=== PATIENT | female | born 1970 ===

== ENCOUNTER 2023-09-22 08:35 | Outpatient (AMB) | payer MEDICARE, MEDICAID, SELFPAY ==
--- NOTE | 2023-09-22 08:47 | A.OFFVIS_ITS ---
Vital Signs 09/22/23 08:49 Height 5 ft 2 in Weight 180 lb BMI 32.9 BP 114/80 Blood Pressure Location Rt brachial Position Sitting Pulse 78 Pulse Source Pulse Oximeter Pulse Oximetry (%) 98 Oxygen Delivery Method Room Air Intake Visit Reasons: ENP-Chronic Migraines-Conf Intake Note: Patient presents for chronic migraines. Patient has migraines she had an MRI that showed a fluid filled sac in my head. patient informed not to take fioricet due to a possible cerebral infarction . Border Patrol Agent Required: Yes Border Patrol Agent Name: sera jackson Allergies codeine Adverse Reaction (Severe, Verified 09/22/23 08:52) hyperactive Medication List - Last Reconciled 09/22/23 by Shelby Muñiz, ASAF atenolol 25 mg PO BID bupropion HCl XL 300 mg PO DAILY uprqzmwfcv-rhnffdvemlueq-ccgn 50-300-40 mg caps PO cetirizine 10 mg PO DAILY clonazepam 2 mg PO BID PRN fluticasone propionate 50 mcg/actuation 1 spray intranasal DAILY hydrochlorothiazide 12.5 mg PO DAILY tramadol 50 mg PO BID PRN HPI Comments Details: Right handed 53-yr-old female presents for new pt evaluation of headache disorder. Pt reports she has had migraine and headache since age 24 w/o known precipitating cause. Pt reports she recently had a brain MRI due to worsening headache frequency and severity in the last 2-3 years. She states the brain MRI was abnormal- but does not understand exactly what was found, but states that she was told not to take fioricet ro topiramate due to the results. Review of [facility] portal shows 2021 brain MRI - Multiple small T2 bright foci are present within the supratentorial white matter and Partially empty sella turcica. PMH and ROS are notable for:? Vision- blurry vision at times Musculoskeletal disorders or injury: neck pain, fibromyalgia, bone pains Cramps: leg cramps- during the day or night History of concussion/head injury: Denies Mood d/o: Anxiety, Depression, ? bipolar Respiratory d/o: Asthma CV disease: HTN GI d/o: Constipation: RECREATIONAL DIRECTOR: Menses is irregular: lizy-menopausal Pertinent denials include: History of concussion/head injury, Sleep d/o, Clotting or hematology d/o, Endocrine or metabolic d/o, History of seizure, syncope, or drop attacks, Family history of migraine or other headache disorder Lifestyle considerations: Sleep routine: Usual bedtime: 2-3am, or may not sleep and wake-up time: 8-9-10am Sleep difficulties: Endorses: Snoring, Fatigue, Restless sleep, Leg Cramps, Bruxism- does not have a mouth guard. Had recent in-lab sleep study at basement Caffeine use: 1 large cups per day- in am Substance use: denies Exercise:?cannot do much Employment:?not working Headache questionnaire:? Typical headache characteristics: Prodrome symptoms: Unsure Aura and Headache: Starts with osmophobia, seeing spots, f/b a bothersome pain in the neck which moves up through the head. Associated symptoms: photophobia, phonophobia, osmophobia, allodynia, nausea, vomiting- at times, spinning dizziness, not right in space dizziness, fatigue, cognitive difficulties, arms feel weak- not sure if from fibromyalgia, red eye, watery eye- at times, nasal congestion, right eye swelling, activity intolerance. Postdrome: can have stabbing pains. Triggers: weather changes- in the summer, the heat, bending over worsens the headache Time of day: No specific time of day Duration and Frequency: More days than not- feels like all the time How does headache impact your life? Cannot work or do her daily activities. Current acute medication use/interventions: Fioricet- helps. Tramadol- for fibromylagia. Current preventative medication use: None Non-pharmacological interventions: rest PFSH Surgical History (Updated 09/22/23 @ 08:55 by ROBBIE Bergeron) History of left salpingo-oophorectomy H/O section Family History (Updated 09/22/23 @ 08:56 by ROBBIE Bergeron) Father Cancer, colon Mother Cirrhosis Diabetes Social History (Updated 09/22/23 @ 08:57 by ROBBIE Bergeron) Alcohol intake: never Patient Tobacco Use Status: Never used Tobacco Physical Exam Vital Signs: Last Vital Signs Pulse 78 09/22/23 08:49 BP 114/80 09/22/23 08:49 Pulse Ox 98 09/22/23 08:49 Oxygen Delivery Method Room Air 09/22/23 08:49 BMI result Body Mass Index 32.9 Const Orientation/consciousness: patient oriented x3 HEENT Other: No palpable scalp tenderness. Head: Yes normocephalic Resp Effort & Inspection: normal respiratory effort and able to speak in complete sentences Neuro General: patient oriented x3 Cranial nerves: Yes CN's II-XII intact bilaterally Cognition (Neuro): normal cognition Gait exam (Neuro): Normal gait present Motor exam (neuro): 5/5 motor strength present throughout Deep tendon reflexes (DTR's): Right triceps reflex intensity grade: 2+, Left tri ceps reflex intensity grade: 2+, Rt Biceps (C5, C6): 2+, Left biceps reflex intensity grade: 2+, Right brachioradialis reflex intensity grade: 2+, Left brachioradialis reflex intensity grade: 2+, Right patellar reflex intensity grade: 2+ and Left patellar reflex intensity grade: 2+ Coordination: oqyaej-ir-tdck test normal and tandem gait normal Pupils: Normal pupillary reactivity/response: bilateral Psych Appearance: grossly normal Mental Status: mental status grossly normal Speech and movement: Normal speech and movement present Affect: normal affect Attitude: cooperative Thought process: Normal thought process present Results Reviewed Results Reviewed: 10/05/21, ?MRI Brain W/O Contrast MRI Brain W/O Contrast INDICATION: Reason: Other:; Headache, chronic, no new features; Clinical Question(s): Other:; Order Comment: Please see Reference Text for complete list of contraindications Other: TECHNIQUE: MRI of the brain was performed without contrast utilizing sagittal T1, axial T2, axial FLAIR, axial SWAN, and axial DWI sequences. COMPARISON: No prior studies are available for comparison at the time of int erpretation. FINDINGS: BRAIN and EXTRA-AXIAL SPACES: There is a partially empty sella turcica. The cervicomedullary junction is normal. The ventricles are normal in size. No extra-axial fluid collection. The flow voids through the rincon of [place] are maintained, and there is no diffusion abnormality or abnormal susceptibility artifact to indicate hemorrhage. There are multiple small T2 bright foci predominantly located within the subcortical white matter. The corpus callosum is normal in signal and configuration on the sagittal T1- weighted images. EXTRACRANIAL SOFT TISSUES: The visualized extracranial soft tissues and orbital structures are unremarkable. Paranasal sinuses and mastoids are unremarkable. BONES: Marrow signal is preserved. IMPRESSION: 1. No intracranial mass or extra-axial fluid collection. 2. Multiple small T2 bright foci are present within the supratentorial white matter. These may represent chronic microangiopathic/small vessel ischemic change. Small T2 bright white matter lesions have also been reported in patients with migraine headache. 3. Partially empty sella turcica. Assessment & Plan Assessment & Plan (1) Empty sella: Code(s): E23.6 - Other disorders of pituitary gland Category: Medical (2) Worsening headaches: Code(s): R51.9 - Headache, unspecified Category: Medical (3) Chronic migraine without aura: Code(s): G43.709 - Chronic migraine without aura, not intractable, without status migrainosus Category: Medical (4) White matter abnormality on MRI of brain: Code(s): R90.82 - White matter disease, unspecified Category: Medical Plan Pt advised to undergo: Brain MRI w/wo to assess staus of white matter lesion burden and empty sella turcica. For overall headache management: * Optimize good self-care, including but not limited to maintaining a healthy diet, adequate fluid intake, adequate sleep, and engaging in regular physical activity. * Track headaches, especially after any treatment regimen changes. Migraine [employer] is one of many headache tracking apps. * Information shared on non-pharmacological interventions which may help to alleviate headache attack burden. For light sensitivity: Patient may benefit from trying blue light filtering glasses, green glasses, green light therapy. Avoiding wearing sunglasses inside. For sound sensitivity: Patent may benefit from trying noise cancellation ear plugs. Neuromodulation devices, which can be used alone or with pharmacological treatment. For acute headache treatment: Discussed importance of taking acute medications at the first sign of headache, however stressed importance of avoiding acute medication overuse (especially with combined headache medications). May continue Fioricet prn for now- use sparingly. Potential adverse effects of Fioricet, including but not limited to fatigue, medication overuse headaches. Previous acute migraine medication trials: Sumatriptan- did not tolerate- made her head feel weird and caused BP changes. Acute migraine medication contraindications: None at this time- however cannot use gepants w/ using Fioricet. For headache prevention medication: Preventative medications should be taken routinely as prescribed for best effect, it may take several weeks for full effect to take effect. Resume Topiramate 25-50mg qhs. Start Emgality 240mg sc x's 1 f/b 120mg sc q month, Potential adverse effects of Ajovy and Emgality, including but not limited to injection site reactions. Previous migraine prevention medication trials: Topiramate- 100mg- helped some, but stopped after the MRI showed empty sella, Propranolol- used for palpiations- did not help headaches. Metoprolol for the palpitations- did not fully help headaches. Migraine prevention medication contraindications: Additional anti-depressant tx- as pt has bipolar dx and is not on an opposing mood stabilizer. Pt seen in collaboration w/ Dr Melisa Rosario. Pt to follow-up in 3-6 months or sooner prn. Orders: Orders MR head/brain wo/w con 09/22/23 E23.6 - Other disorders of pituitary gland, R51.9 - Headache, unspecified, R90.82 - White matter disease, unspecified Medications: New galcanezumab-gnlm (Emgality Pen) Loading dose: 120 mg subcu injection x2 in alternate sites (total 240 mg). To be followed by maintenance dose of 120 mg subcu q.month. 240 mg (2 mL) subcut ONCE 2 mL 0RF 30 days G43.709 - Chronic migraine without aura, not intractable, without status migrainosus topiramate 25 - 50 mg (1 - 2 x 25 mg) PO BEDTIME 60 tabs 3RF 30 days G43.709 - Chronic migraine without aura, not intractable, without status migrainosus Coding Level of Care Code New Pt Level 4 (10933) Diagnoses Empty sella E23.6 Worsening headaches R51.9 Chronic migraine without aura G43.709 White matter abnormality on MRI of brain R90.82
[2023-09-22 08:49] VITALS: BP 114/80; PULSE 78; O2SAT 98; BMI 32.9
== END 2023-09-22 10:24 | disposition home or self-care (01) ==
PROVIDERS: PCP Internal Medicine; Visit Provider Nurse Practitioner Family
DX: E23.6 Other disorders of pituitary gland (principal); R51.9 Headache, unspecified; G43.709 Chronic migraine without aura, not intractable, without status migrainosus; R90.82 White matter disease, unspecified
CPT/HCPCS: 99204

== ENCOUNTER → 2023-09-22 08:35 | Outpatient (BNVA) | payer MEDICARE, MEDICAID, SELFPAY | PROVIDERS: PCP Internal Medicine; Visit Provider Nurse Practitioner Family | DX: G43.709 Chronic migraine without aura, not intractable, without status migrainosus (principal); R90.82 White matter disease, unspecified; E23.6 Other disorders of pituitary gland; R51.9 Headache, unspecified | CPT/HCPCS: 99202 ==

== ENCOUNTER → 2023-10-26 11:01 | Outpatient (BNVA) | payer MEDICARE, MEDICAID, SELFPAY | PROVIDERS: PCP Internal Medicine; Visit Provider Nurse Practitioner Family ==

== ENCOUNTER 2023-12-01 15:12 | Outpatient (REF) | payer MEDICARE, MEDICAID, SELFPAY ==
--- NOTE | ~2023-12-01 | MR_ITS ---
EXAMINATION: MR BRAIN WITHOUT CONTRAST CLINICAL INFORMATION: Headache COMPARISON: None TECHNIQUE: Multiplanar multisequence MR imaging of the brain was obtained without intravenous contrast. FINDINGS: There is no acute infarct on diffusion-weighted imaging. There is no intracranial hemorrhage on iron-sensitive imaging. No extra-axial collection or mass effect/herniation. There are multiple scattered foci of T2/FLAIR hyperintense signal in the supratentorial and predominantly bifrontal white matter. No hydrocephalus. The ventricles are normal in morphology and size. The major flow voids at the skull base are preserved. Mildly expanded and partially empty sella. The cerebellar tonsils are normally positioned. The craniocervical junction is normal. Marrow signal is within normal limits. The visualized soft tissues are without significant abnormality. No signal abnormality within the paranasal sinuses or within the mastoid air cells. MR/MR head/brain wo con IMPRESSION: 1. Multiple scattered foci of T2/FLAIR hyperintense signal in the supratentorial and predominantly bifrontal white matter are nonspecific but can be seen in the setting of migraine and/or chronic microvascular ischemia. 2. Mildly expanded and partially empty sella. As an isolated finding, this is nonspecific but can be seen in the setting of chronic elevated intracranial pressure including idiopathic intracranial hypertension. Correlate with clinical symptomatology. Electronically signed by: Edmundo Morgan MD 12/20/2023 06:33 PM EDT
== END 2023-12-01 15:13 | disposition home or self-care (01) ==
LOC: HO.MRI 15:12
PROVIDERS: PCP Internal Medicine; Visit Provider Nurse Practitioner Family
DX: R51.9 Headache, unspecified (principal); E23.6 Other disorders of pituitary gland; R90.82 White matter disease, unspecified
CPT/HCPCS: 70551

== ENCOUNTER 2023-12-21 08:57 | Outpatient (AMB) | payer MEDICARE, SELFPAY, MEDICAID ==
--- NOTE | 2023-12-21 09:01 | A.OFFVIS_ITS ---
Vital Signs 12/21/23 09:02 Height 5 ft 2 in Weight 177 lb BMI 32.4 Intake Visit Reasons: Follow up Intake Note: Patient presents for follow up Paraprofessional Education Assistant Required: Yes Paraprofessional Education Assistant Services: Paraprofessional Education Assistant Offered & Declined Paraprofessional Education Assistant Name: john handy Allergies codeine Adverse Reaction (Severe, Verified 12/21/23 09:04) hyperactive Medication List - Last Reconciled 12/21/23 by ASAF Valencia bupropion HCl XL 300 mg PO DAILY fazyinxxir-dzzbrnbuapvyj-tugq 50-300-40 mg 1 cap PO Q4-6H PRN 30 days cetirizine 10 mg PO DAILY clonazepam 2 mg PO BID PRN fluticasone propionate 50 mcg/actuation 1 spray intranasal DAILY galcanezumab-gnlm (Emgality Pen) 240 mg (2 mL) subcut ONCE 30 days hydrochlorothiazide 12.5 mg PO DAILY propranolol 40 mg PO BID topiramate 25 - 50 mg (1 - 2 x 25 mg) PO BEDTIME 30 days tramadol 50 mg PO BID PRN HPI Comments Details: 53-yr-old female presents for f/u visit. Pt is accompanied by her her , John who assists w/ English translation. Pt had a recent [facility] ER eval d/t tachycardia. Per pt, this was thought to be triggered by recently stopping Atenolol as it was thought to be causing peripheral swelling. Work-up was unremarkable. They suggested she start Propranolol 40mg bid. stop the HCTZ. D/c paperwork also indictaed to stop topiramate, but this was not addressed specifically in the provider notes. In a week, she is having 2-3 migraine days. Headaches strat after getting up in the am. Prior to the hospital, she felt the Emgality was helping. But she has had an increase in headaches since the last visit. She has been trying not to take the Fioricet. Thus, she is not taking anything at onset. Her last eye exam was 1 yr ago. She denies any interval vision changes. Rarely has ear ringing- typically during the day when up. Baseline headache characteristics: Prodrome symptoms: Unsure Aura and Headache: Starts with osmophobia, seeing spots, f/b a bothersome pain in the neck which moves up through the head. Associated symptoms: photophobia, phonophobia, osmophobia, allodynia, nausea, vomiting- at times, spinning dizziness, not right in space dizziness, fatigue, cognitive difficulties, arms feel weak- not sure if from fibromyalgia, red eye, watery eye- at times, nasal congestion, right eye swelling, activity intolerance. Postdrome: can have stabbing pains. 12/01/23, MR/MR head/brain wo con IMPRESSION: 1. Multiple scattered foci of T2/FLAIR hyperintense signal in the supratentorial and predominantly bifrontal white matter are nonspecific but can be seen in the setting of migraine and/or chronic microvascular ischemia. 2. Mildly expanded and partially empty sella. As an isolated finding, this is nonspecific but can be seen in the setting of chronic elevated intracranial pressure including idiopathic intracranial hypertension. Correlate with clinical symptomatology.) [facility] Medical History (Updated 12/21/23 @ 09:48 by ASAF Valencia) Anxiety and depression Asthma Surgical History History of left salpingo-oophorectomy H/O section Family History Father Cancer, colon Mother Cirrhosis Diabetes Social History Alcohol intake: never Patient Tobacco Use Status: Never used Tobacco Physical Exam Vital Signs: BMI result Body Mass Index 32.4 Const General: cooperative and no acute distress Orientation/consciousness: patient oriented x3 Resp Effort & Inspection: normal respiratory effort and able to speak in complete sentences Neuro General: patient oriented x3 Cranial nerves: Yes CN's II-XII intact bilaterally Cognition (Neuro): normal cognition Psych Appearance: grossly normal Mental Status: mental status grossly normal Speech and movement: Normal speech and movement present Affect: normal affect Attitude: cooperative Assessment & Plan Assessment & Plan (1) Migraine without aura: Code(s): G43.009 - Migraine without aura, not intractable, without status migrainosus Category: Medical (2) White matter abnormality on MRI of brain: Code(s): R90.82 - White matter disease, unspecified Category: Medical (3) Empty sella: Code(s): E23.6 - Other disorders of pituitary gland Category: Medical Plan Reviewed: Brain MRI w/wo- stabke white matter lesion burden and empty sella turcica. No current clinical indications of IIH. Will monitor. Pt advsied to have f/u eye exam. ? For overall headache management: Continue to optimize good self-care, including but not limited to maintaining a healthy diet, adequate fluid intake, adequate sleep, and engaging in regular physical activity. Track headaches, especially after any treatment regimen changes. ? For acute headache treatment: Stop Fioricet prn for now- use sparingly. Trial Rimegepant ODT (Nurtec ODT) 75mg, 1 tab every other day. Max of 1 tabs (75mg) per 24 hours. May adjunct with OTC Tylenol 650mg q 4 hours, Ibuprofen 600mg q 6 hours, or Naproxen 440mg q 12 hrs prn. Do not take w/ Butalbital (Fioricet or Fiorinal). Potential adverse effects, include but are not limited to fatigue, nausea, dry mouth, constipation. Previous acute migraine medication trials: Sumatriptan- did not tolerate- made her head feel weird and caused BP changes. Acute migraine medication contraindications: All triptans- d/t poorly controlled HTN. ? For headache prevention medication: Resume Topiramate 50mg qhs. Continue Emgality 120mg sc q month, as this has been effective. Continue Propranolol 40mg bid- for HTN/tachycardia. Previous migraine prevention medication trials: Topiramate- 100mg- helped some, but stopped after the MRI showed empty sella, Propranolol- was previously used for palpiations- did not help headaches. Metoprolol for the palpitations- did not fully help headaches. Migraine prevention medication contraindications: Additional anti-depressant tx- as pt has bipolar dx and is not on an opposing mood stabilizer. ? Pt to follow-up in 6 months or sooner prn. Medications: New rimegepant (Nurtec ODT) 75 mg PO ONCE 30 days PRN 16 tabs 3RF migraine headache MDD 1 tab Coding Level of Care Code Est Pt Level 4 (97345) Diagnoses Migraine without aura G43.009 White matter abnormality on MRI of brain R90.82 Empty sella E23.6
[2023-12-21 09:02] VITALS: BMI 32.4
== END 2023-12-21 09:46 | disposition home or self-care (01) ==
PROVIDERS: PCP Internal Medicine; Visit Provider Nurse Practitioner Family
DX: G43.009 Migraine without aura, not intractable, without status migrainosus (principal); R90.82 White matter disease, unspecified; E23.6 Other disorders of pituitary gland
CPT/HCPCS: 99214

== ENCOUNTER → 2023-12-21 08:57 | Outpatient (BNVA) | payer MEDICARE, MEDICAID, SELFPAY | PROVIDERS: PCP Internal Medicine; Visit Provider Nurse Practitioner Family | DX: G43.009 Migraine without aura, not intractable, without status migrainosus (principal); R90.82 White matter disease, unspecified; E23.6 Other disorders of pituitary gland | CPT/HCPCS: 99212 ==

== ENCOUNTER 2024-03-22 13:05 | Outpatient (AMB) | payer MEDICARE, MEDICAID, SELFPAY ==
--- NOTE | 2024-03-22 13:08 | MHC.OFFVIS ---
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 Allergies codeine Adverse Reaction (Severe, Verified 03/22/24 13:13) hyperactive Medication List - Last Reconciled 03/22/24 by ASAF Valencia bupropion HCl XL 300 mg PO DAILY vwbzqjuhmc-kcfxlfjwghaxy-jbdr 50-300-40 mg 1 cap PO Q4-6H PRN 30 days cetirizine 10 mg PO DAILY clonazepam 2 mg PO BID PRN fluticasone propionate 50 mcg/actuation 1 spray intranasal DAILY galcanezumab-gnlm (Emgality Pen) 240 mg (2 mL) subcut ONCE 30 days hydrochlorothiazide 12.5 mg PO DAILY propranolol 40 mg PO BID rimegepant (Nurtec ODT) 75 mg PO ONCE PRN 30 days MDD 1 tab topiramate 50 mg (2 x 25 mg) PO BEDTIME 30 days tramadol 50 mg PO BID PRN Do you need a note to return to daycare/school/sports/work: No HPI Comments Details: 53-yr-old female presents for f/u visit for migraine. Pt reports she is having increased migraine frequency and photophobia. Sometimes the headache is stabbing right sided. The headache is worse after standing up and when she lays flat down. Rarely has ear ringing- typically during the day when up. She stopped the Fioricet. She feels the injection is not working as well. Nurtec and help some, it is unclear if she is taking it at the very 1st sign of her migraine. She has not had updated eye exam yet. Patient also notes that she is having increased daytime sleepiness, increased snoring, a mild weight gain, and a history of reported mild sleep apnea however was never started on PAP therapy. Baseline headache characteristics: Prodrome symptoms: Unsure Aura and Headache: Starts with osmophobia, seeing spots, f/b a bothersome pain in the neck which moves up through the head. Associated symptoms: photophobia, phonophobia, osmophobia, allodynia, nausea, vomiting- at times, spinning dizziness, not right in space dizziness, fatigue, cognitive difficulties, arms feel weak- not sure if from fibromyalgia, red eye, watery eye- at times, nasal congestion, right eye swelling, activity intolerance. Postdrome: can have stabbing pains. 12/01/23, MR/MR head/brain wo con IMPRESSION: 1. Multiple scattered foci of T2/FLAIR hyperintense signal in the supratentorial and predominantly bifrontal white matter are nonspecific but can be seen in the setting of migraine and/or chronic microvascular ischemia. 2. Mildly expanded and partially empty sella. As an isolated finding, this is nonspecific but can be seen in the setting of chronic elevated intracranial pressure including idiopathic intracranial hypertension. Correlate with clinical symptomatology.) [facility] Medical History Anxiety and depression Asthma Surgical History History of left salpingo-oophorectomy H/O section Family History Father Cancer, colon Mother Cirrhosis Diabetes Social History Alcohol intake: never Patient Tobacco Use Status: Never used Tobacco Physical Exam Vital Signs: Last Vital Signs Pulse 75 03/22/24 13:09 BP 120/70 03/22/24 13:09 Pulse Ox 100 03/22/24 13:09 Oxygen Delivery Method Room Air 03/22/24 13:09 BMI result Body Mass Index 32.9 Const General: cooperative and no acute distress Orientation/consciousness: patient oriented x3 Resp Effort & Inspection: normal respiratory effort and able to speak in complete sentences Neuro Other: Photophobic General: patient oriented x3 Cranial nerves: Yes CN's II-XII intact bilaterally Cognition (Neuro): normal cognition Psych Appearance: grossly normal Mental Status: mental status grossly normal Speech and movement: Normal speech and movement present Affect: normal affect Attitude: cooperative Assessment & Plan Assessment & Plan (1) Migraine without aura: Code(s): G43.009 - Migraine without aura, not intractable, without status migrainosus Category: Medical (2) White matter abnormality on MRI of brain: Code(s): R90.82 - White matter disease, unspecified Category: Medical (3) Empty sella: Code(s): E23.6 - Other disorders of pituitary gland Category: Medical (4) Obstructive sleep apnea: Code(s): G47.33 - Obstructive sleep apnea (adult) (pediatric) Category: Medical (5) Hypersomnia: Code(s): G47.10 - Hypersomnia, unspecified Category: Medical Plan Again reviewed Brain MRI w/wo report and images with patient- stable white matter lesion burden and empty sella turcica. No current clinical indications of IIH. However, patient is advised to have updated eye exam is scheduled next week, to confirm no evidence of papilledema or visual field deficits. Patient also advised to undergo in-lab sleep study to assess status of sleep apnea. Future considerations: LP for opening pressure. ? For overall headache management: Continue to optimize good self-care, including but not limited to maintaining a healthy diet, adequate fluid intake, adequate sleep, and engaging in regular physical activity. Track headaches, especially after any treatment regimen changes. Information shared with patient on nonpharmacological interventions of migraine, including strategies to reduce photophobia such as blue light blocking glasses, green light therapy. ? For acute headache treatment: Continue Rimegepant ODT (Nurtec ODT) 75mg, 1 tab every other day. Max of 1 tabs (75mg) per 24 hours. Advised to take at the very 1st sign of migraine attack, such as at onset of osmophobia. May adjunct Nurtec with OTC Tylenol 650mg q 4 hours, Ibuprofen 600mg q 6 hours, or Naproxen 440mg q 12 hrs prn. Do not take w/ Butalbital (Fioricet or Fiorinal). Potential adverse effects, include but are not limited to fatigue, nausea, dry mouth, constipation. Previous acute migraine medication trials: Sumatriptan- did not tolerate- made her head feel weird and caused BP changes. Fioricet stopped, ineffective. Acute migraine medication contraindications: All triptans- d/t poorly controlled HTN. ? For headache prevention medication: Increase Topiramate from 50mg qhs to 50 mg b.i.d. for 1 week and then increase to 50 mg in a.m. and 100 mg q.h.s. Continue Emgality 120mg sc q month, as this has been previously effective. Continue Propranolol 40mg bid- for HTN/tachycardia. Previous migraine prevention medication trials: Topiramate- 100mg- helped some, but stopped after the MRI showed empty sella, Propranolol- was previously used for palpations- did not help headaches. Metoprolol for the palpitations- did not fully help headaches. Migraine prevention medication contraindications: Additional anti-depressant tx- as pt has bipolar dx and is not on an opposing mood stabilizer. Future considerations: With Psychiatry weaning off of bupropion as sometimes this may exacerbate headache, trialing Qulipta. ? Pt to follow-up in 6 months or sooner prn. Orders: Orders RT PSG in-lab sleep study Today G47.10 - Hypersomnia, unspecified, G47.33 - Obstructive sleep apnea (adult) (pediatric) Medications: New topiramate 50mg in am and 100mg qhs orally 2 times a day; 30 days 90 tabs 3RF Discontinued topiramate Discontinued Reason: Doctor's Order 50 mg (2 x 25 mg) PO BEDTIME 30 days 60 tabs 6RF G43.709 - Chronic migraine without aura, not intractable, without status migrainosus Coding Level of Care Code Est Pt Level 4 (63568) Diagnoses Migraine without aura G43.009 White matter abnormality on MRI of brain R90.82 Empty sella E23.6 Obstructive sleep apnea G47.33 Hypersomnia G47.10 [place] Sleepiness Scale Questions Sitting and reading: moderate chance of dozing Watching TV: moderate chance of dozing Sitting inactive in a theater, movie etc.: moderate chance of dozing As a passenger in a car for an hour without break: moderate chance of dozing Lying down in the afternoon when circumstances permit: moderate chance of dozing Sitting and talking to someone: would never doze Sitting quietly after lunch without alcohol: moderate chance of dozing In a car, while stopped for a few minutes in the traffic: would never doze ESS < 10: normal, ESS > 12: pathologic: 12
[2024-03-22 13:09] VITALS: BP 120/70; PULSE 75; O2SAT 100; BMI 32.9
== END 2024-03-22 14:16 | disposition home or self-care (01) ==
PROVIDERS: PCP Internal Medicine; Visit Provider Nurse Practitioner Family
DX: G43.009 Migraine without aura, not intractable, without status migrainosus (principal); R90.82 White matter disease, unspecified; E23.6 Other disorders of pituitary gland; G47.33 Obstructive sleep apnea (adult) (pediatric); G47.10 Hypersomnia, unspecified
CPT/HCPCS: 99214

== ENCOUNTER → 2024-03-22 13:05 | Outpatient (BNVA) | payer MEDICARE, MEDICAID, SELFPAY | PROVIDERS: PCP Internal Medicine; Visit Provider Nurse Practitioner Family | DX: G43.709 Chronic migraine without aura, not intractable, without status migrainosus (principal); G47.33 Obstructive sleep apnea (adult) (pediatric); G47.10 Hypersomnia, unspecified; R90.82 White matter disease, unspecified; E23.6 Other disorders of pituitary gland | CPT/HCPCS: 99212 ==

== ENCOUNTER 2024-08-23 11:27 | Outpatient (AMB) | payer MEDICARE, MEDICAID, SELFPAY ==
[2024-08-23 11:31] VITALS: BP 98/70; PULSE 77; O2SAT 99; BMI 33.1
--- NOTE | 2024-08-23 11:31 | MHC.OFFVIS ---
Vital Signs 08/23/24 11:31 Height 5 ft 2 in Weight 181 lb BMI 33.1 BP 98/70 Blood Pressure Location Lt brachial Position Sitting Pulse 77 Pulse Source Pulse Oximeter Pulse Oximetry (%) 99 Oxygen Delivery Method Room Air Intake Visit Reasons: Follow up Intake Note: Patient presents follow up for migraines. Material Control Manager Required: Yes Material Control Manager Name: Shree Accompanied by: Self / Same As Patient Allergies codeine Adverse Reaction (Severe, Verified 08/23/24 11:35) hyperactive Medication List - Last Reconciled 08/23/24 by ASAF Valencia bupropion HCl XL 300 mg PO DAILY dudurmhghx-qmvblbmptmait-ogxk 50-300-40 mg 1 cap PO Q4-6H PRN 30 days cetirizine 10 mg PO DAILY clonazepam 2 mg PO BID PRN fluticasone propionate 50 mcg/actuation 1 spray intranasal DAILY galcanezumab-gnlm (Emgality Pen) 240 mg (2 mL) subcut ONCE 30 days hydrochlorothiazide 12.5 mg PO DAILY propranolol 40 mg PO BID propranolol 40 mg PO BID rimegepant (Nurtec ODT) 75 mg PO ONCE PRN 30 days MDD 1 tab topiramate 50mg in am and 100mg qhs orally 2 times a day; 30 days tramadol 50 mg PO BID PRN HPI Comments Details: 54-yr-old female presents for f/u visit for migraine. Patient reports the following interval changes: She had [facility] admission in January 2024 for right abdominal pain with US showing enlarged right ovary. 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 Patient is unsure of the next steps PCP has recently referred her to [facility] pain management for chronic low back pain with intermittent sciatica. 08/03/2024, XR lumbar spine shows multilevel degenerative changes, with significant arthritic changes at L4-5, as well as anterior subluxation of L4 on L5 measuring 8 mm. She is not having many headache days during the 1st 3 weeks following her Emgality injection, however she has her typical migraine every day during the last week of are Emgality injection cycle. She is wondering if her previous brain MRI findings of empty sella would prohibit her from flying. Also notes significant anxiety due to flying, usually uses prn Xanax with good effect. Patient denies history of flight induced headaches. She states she has had 2 interval eye exams-however we do not have these no notes at this time. Pt reports when she increased the dose of topiramate to 100mg qhs, it caused nocturnal bilateral facial muscle spasms- which does not occur with the b.i.d. dosing. So she switched the Topirmate magdaleno to 50mg bid, and this resolved. Her HCTZ was decreased as her BP was too low- in the 80/40s. BP today is 98/70. States that the Emgality works well for 3 weeks, but the effect wears off during the last week of injection cycle. States Nurtec is helpful Patient did not have sleep study, however continues to report daytime sleepiness, increased snoring, a mild weight gain. She has a history of reported mild sleep apnea however was never started on PAP therapy. To would prefer to do a home sleep study instead of an in-lab study. Baseline headache characteristics: Prodrome symptoms: Unsure Aura and Headache: Starts with osmophobia, seeing spots, f/b a bothersome pain in the neck which moves up through the head. Associated symptoms: photophobia, phonophobia, osmophobia, allodynia, nausea, vomiting- at times, spinning dizziness, not right in space dizziness, fatigue, cognitive difficulties, arms feel weak- not sure if from fibromyalgia, red eye, watery eye- at times, nasal congestion, right eye swelling, activity intolerance. Postdrome: can have stabbing pains. 12/01/23, MR/MR head/brain wo con IMPRESSION: 1. Multiple scattered foci of T2/FLAIR hyperintense signal in the supratentorial and predominantly bifrontal white matter are nonspecific but can be seen in the setting of migraine and/or chronic microvascular ischemia. 2. Mildly expanded and partially empty sella. As an isolated finding, this is nonspecific but can be seen in the setting of chronic elevated intracranial pressure including idiopathic intracranial hypertension. Correlate with clinical symptomatology.) [facility] Medical History Anxiety and depression Asthma Surgical History History of left salpingo-oophorectomy H/O section Family History Father Cancer, colon Mother Cirrhosis Diabetes Social History Alcohol intake: never Patient Tobacco Use Status: Never used Tobacco Physical Exam Vital Signs: Last Vital Signs Pulse 77 08/23/24 11:31 BP 98/70 08/23/24 11:31 Pulse Ox 99 08/23/24 11:31 Oxygen Delivery Method Room Air 08/23/24 11:31 BMI result Body Mass Index 33.1 Const General: cooperative and no acute distress Orientation/consciousness: patient oriented x3 Resp Effort & Inspection: normal respiratory effort and able to speak in complete sentences Neuro Other: Photophobic Bilateral posterior cervical tightness and tenderness General: patient oriented x3 Cranial nerves: Yes CN's II-XII intact bilaterally Cognition (Neuro): normal cognition Psych Appearance: grossly normal Mental Status: mental status grossly normal Speech and movement: Normal speech and movement present Affect: normal affect Attitude: cooperative Assessment & Plan Assessment & Plan (1) Migraine without aura: Code(s): G43.009 - Migraine without aura, not intractable, without status migrainosus Category: Medical Qualifiers: Status migrainosus presence: without status migrainosus Intractability: not intractable Qualified Code(s): G43.009 - Migraine without aura, not intractable, without status migrainosus (2) Obstructive sleep apnea: Code(s): G47.33 - Obstructive sleep apnea (adult) (pediatric) Category: Medical (3) Hypersomnia: Code(s): G47.10 - Hypersomnia, unspecified Category: Medical (4) White matter abnormality on MRI of brain: Code(s): R90.82 - White matter disease, unspecified Category: Medical (5) Empty sella: Code(s): E23.6 - Other disorders of pituitary gland Category: Medical Plan Brain MRI w/wo report and images with patient- stable white matter lesion burden and empty sella turcica. No current clinical indications of IIH. We will request ophthalmology notes Patient again advised sleep study, patient request home sleep study if possible. Future considerations: LP for opening pressure, trial of Acetazolamide (possibly during air travel). Zepbound therapy- if sleep study shows moderate-severe NORRIS or eye exam has revealed visual deficits c/w intracranial hypertension. ? For overall headache management: Continue to optimize good self-care, including but not limited to maintaining a healthy diet, adequate fluid intake, adequate sleep, and engaging in regular physical activity. Track headaches, especially after any treatment regimen changes. Information shared with patient on nonpharmacological interventions of migraine, including strategies to reduce photophobia such as blue light blocking glasses, green light therapy. ? For acute headache treatment: Continue Rimegepant ODT (Nurtec ODT) 75mg, 1 tab every other day. Max of 1 tabs (75mg) per 24 hours. Advised to take at the very 1st sign of migraine attack, such as at onset of osmophobia. May adjunct Nurtec with OTC Tylenol 650mg q 4 hours, Ibuprofen 600mg q 6 hours, or Naproxen 440mg q 12 hrs prn. Do not take w/ Butalbital (Fioricet or Fiorinal). Previous acute migraine medication trials: Sumatriptan- did not tolerate- made her head feel weird and caused BP changes. Fioricet stopped, ineffective. Acute migraine medication contraindications: All triptans- d/t poorly controlled HTN. ? For headache prevention medication: Start magnesium 400 mg daily at bedtime- may help was cervical muscle tightness as well Continue Topiramate 50 mg twice a day. Note that 100 mg q.h.s. dose caused nocturnal bilateral facial spasms. Continue Emgality 120mg sc q month, as this has been previously effective. During last week of Emgality injection cycle, take Nurtec 75 mg every other day to optimize preventative therapy. Continue Propranolol 40mg bid- for HTN/tachycardia. Previous migraine prevention medication trials: Topiramate- 100mg- helped some, but stopped after the MRI showed empty sella, Propranolol- was previously used for palpations- did not help headaches. Metoprolol for the palpitations- did not fully help headaches. Migraine prevention medication contraindications: Additional anti-depressant tx- as pt has bipolar dx and is not on an opposing mood stabilizer. Future considerations: With Psychiatry weaning off of bupropion as sometimes this may exacerbate headache, trialing Qulipta. ? Pt to follow-up in 6 months or sooner prn. Orders: Orders RT home sleep study Today G47.10 - Hypersomnia, unspecified, G47.33 - Obstructive sleep apnea (adult) (pediatric) Medications: New magnesium oxide may hold for loose stools 400 mg PO BEDTIME 30 days 30 tabs 6RF Changed From rimegepant (Nurtec ODT) 75 mg PO ONCE 30 days PRN 16 tabs 3RF migraine headache MDD 1 tab To rimegepant (Nurtec ODT) PA approved through 04/11/2099 75 mg PO ONCE 30 days PRN 16 tabs 11RF migraine headache MDD 1 tab Discontinued zvwrngyqxl-icnthcylsdmnb-psdv 50-300-40 mg Discontinued Reason: Doctor's Order 1 cap PO Q4-6H 30 days PRN 20 caps 1RF pain Coding Level of Care Code Est Pt Level 4 (07767) Diagnoses Migraine without aura and without status migrainosus, not intractable G43.009 Status migrainosus presence: without status migrainosus Intractability: not intractable Obstructive sleep apnea G47.33 Hypersomnia G47.10 White matter abnormality on MRI of brain R90.82 Empty sella E23.6
--- OUTSIDE RECORDS SUMMARY | 2024-08-23 12:25 | XMS_ITS | Clinical Summary ---
Author Organization [facility] ity Address [address] [place] [address] Care Team Providers Care Superintendent Terminal Name Role Phone Corrina Burris MD Primary Care Provider Unava ilable Social History Tobacco Use Types Packs/Day Years Used Date Smoking Tobacco: Never Assessed Comments Unknown Sex and Gender Information Value Date Recorded Sex Assigned at Not on file Legal Sex Female 5:43 PM EST Gender Identity Not on file Sexual Orientation Not on file Plan of Treatment Health Maintenance Due Date Last Done Comments Breast Cancer Screening 1972 DTaP,Tdap,and Td Vaccines (1 - Tdap) 1991 Hepatitis B Vaccines (1 of 3 - 19+ 3-dose series) 1991 Cervical Cancer Screening: P ap Smear 1993 Pneumococcal Vaccine: 50+ Ye ars (1 of 1 - PCV) 2022 Zoster Vaccines (1 of 2) 2022 Colorectal Cancer Screening: Colonoscopy 05/11/2023 Depression Screening 05/11/2023 HIV Screening 05/11/2023 Hepatitis C Screening 05/11/2023 Social Influencers of Health Screening 05/11/2023 COVID-19 Vaccine ( - 2023-2 5 season) 2023 Influenza Vaccine (Season Ended) 2024 HIB Vaccines Aged Out No longer eligi ble based on patient's age to complete this topic HPV Vaccines Aged Out No longer eligi ble based on patient's age to complete this topic Hepatitis A Vaccines Aged Out No long er eligible based on patient's age to complete this topic IPV Vaccines Aged Out No longer eligi ble based on patient's age to complete this topic MMR Vaccines Aged Out No longer eligi ble based on patient's age to complete this topic Meningococcal ACWY Vaccine Aged Out N o longer eligible based on patient's age to complete this topic Meningococcal B Vaccine Aged Out No l onger eligible based on patient's age to complete this topic Pneumococcal Vaccine: Pediat rics (0 to 5 Years) and At-Risk Patients (6 to 64 Years) Aged Out No longer eligible b ased on patient's age to complete this topic RSV Immunization Patients Un leta 20 months Aged Out No longer eligible b ased on patient's age to complete this topic Varicella Vaccines Aged Out No longer eligible based on patient's age to complete this topic Care Teams Superintendent Terminal Relationship Specialty Start Date End Date Corrina Burris MD PCP - General Internal Medicine 11/19/16
== END 2024-08-23 12:24 | disposition home or self-care (01) ==
LOC: HO.HSMS 11:27
PROVIDERS: PCP Internal Medicine; Visit Provider Nurse Practitioner Family
DX: G43.009 Migraine without aura, not intractable, without status migrainosus (principal); G47.33 Obstructive sleep apnea (adult) (pediatric); G47.10 Hypersomnia, unspecified; R90.82 White matter disease, unspecified; E23.6 Other disorders of pituitary gland
CPT/HCPCS: 99214

== ENCOUNTER → 2024-08-23 11:27 | Outpatient (BNVA) | payer MEDICARE, MEDICAID, SELFPAY | PROVIDERS: PCP Internal Medicine; Visit Provider Nurse Practitioner Family | DX: G43.009 Migraine without aura, not intractable, without status migrainosus (principal); G47.33 Obstructive sleep apnea (adult) (pediatric); G47.10 Hypersomnia, unspecified; R90.82 White matter disease, unspecified; E23.6 Other disorders of pituitary gland | CPT/HCPCS: 99212 ==

== ENCOUNTER → 2024-09-28 08:43 | Outpatient (REF) | payer MEDICARE, MEDICAID, SELFPAY ==
--- OUTSIDE RECORDS SUMMARY | 2024-09-28 09:08 | XMS_ITS | Clinical Summary ---
Author Organization [facility] ity Address [address] [place] [address] Care Team Providers Care Industrial Staff Nurse Name Role Phone Corrina Burris MD Primary [...] age to complete this topic Care Teams Industrial Staff Nurse Relationship Specialty Start Date End Date Corrina Burris MD PCP - General Internal Medicine 11/19/16
== END ==
LOC: HO.SL 08:43
PROVIDERS: Visit Provider Nurse Practitioner Family
DX: G47.33 Obstructive sleep apnea (adult) (pediatric) (principal); G47.10 Hypersomnia, unspecified; R06.83 Snoring; R40.0 Somnolence
CPT/HCPCS: 95806

== ENCOUNTER → 2024-09-28 09:01 | Outpatient (BNV) | payer MEDICARE, MEDICAID, SELFPAY | PROVIDERS: Visit Provider Psychiatry & Neurology Neurology | DX: G47.33 Obstructive sleep apnea (adult) (pediatric) (principal) | CPT/HCPCS: 95806 ==

== ENCOUNTER 2025-01-01 08:26 | Outpatient (AMB) | payer MEDICARE, MEDICAID, SELFPAY ==
[2025-01-01 08:31] VITALS: BP 90/70; PULSE 88; O2SAT 99; BMI 30.7
--- NOTE | 2025-01-01 08:31 | A.OFFVIS_ITS ---
Vital Signs 01/01/25 08:31 Height 5 ft 2 in Weight 168 lb BMI 30.7 BP 90/70 Blood Pressure Location Rt brachial Position Sitting Pulse 88 Pulse Source Pulse Oximeter Pulse Oximetry (%) 99 Oxygen Delivery Method Room Air Intake Visit Reasons: 3m Follow up Intake Note: Patient presents follow up for migraines. Water Project Manager Required: No Water Project Manager Name: Shree Accompanied by: Self / Same As Patient Allergies codeine Adverse Reaction (Severe, Verified 01/01/25 08:39) hyperactive Medication List - Last Reconciled 01/01/25 by ASAF Valencia bupropion HCl XL 300 mg PO DAILY cetirizine 10 mg PO DAILY clonazepam 2 mg PO BID PRN fluticasone propionate 50 mcg/actuation 1 spray intranasal DAILY galcanezumab-gnlm (Emgality Pen) 120 mg subcut Q30D 30 days hydrochlorothiazide 12.5 mg PO DAILY magnesium oxide 400 mg PO BEDTIME 30 days methocarbamol 500 mg PO BEDTIME propranolol 40 mg PO BID rimegepant (Nurtec ODT) 75 mg PO ONCE PRN 30 days MDD 1 tab tirzepatide (weight loss) (Zepbound) 2.5 mg subcut QWEEK topiramate 50mg in am and 100mg qhs orally 2 times a day; 30 days tramadol 50 mg PO BID PRN HPI Comments Details: 54-yr-old female presents for f/u visit for migraine. Pt reports she has been experiencing alopecia and sensitivity in the back of her head. She reports her PCP has suggested this is from her propranolol, however pt states this helps her palpitations. She has reduced the Propranolol from 40mg bid to 40mg qam. Pt also reports she is feeling some anxiety- she is f/b psychiatry. She is having more right sided neck pian and bilateral carpal tunnel symptoms- but does not want surgery. She thinks the neck pain is worse since not having her emgality. Interval eye exam did not show papilledema. Denies vision changes. She states she is currently late to take her emgality by at least a week due to a pharmacy issue She reports she is ahving 2-3 migarine attacks per month. The Nurtec is helpful so her migraine does not last 2-3 days 08/23/2024, previous HPI: Patient reports the following interval changes: She had [facility] admission in January 2024 for right abdominal pain with US showing enlarged right ovary. Patient recently underwent follow-up transvaginal ultrasound per Dr. 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 Patient is unsure of the next steps PCP has recently referred her to [facility] pain management for chronic low back pain with intermittent sciatica. 08/03/2024, XR lumbar spine shows multilevel degenerative changes, with significant arthritic changes at L4-5, as well as anterior subluxation of L4 on L5 measuring 8 mm. She is not having many headache days during the 1st 3 weeks following her Emgality injection, however she has her typical migraine every day during the last week of are Emgality injection cycle. She is wondering if her previous brain MRI findings of empty sella would prohibit her from flying. Also notes significant anxiety due to flying, usually uses prn Xanax with good effect. Patient denies history of flight induced headaches. She states she has had 2 interval eye exams-however we do not have these no notes at this time. Pt reports when she increased the dose of topiramate to 100mg qhs, it caused nocturnal bilateral facial muscle spasms- which does not occur with the b.i.d. dosing. So she switched the Topirmate magdaleno to 50mg bid, and this resolved. Her HCTZ was decreased as her BP was too low- in the 80/40s. BP today is 98/70. States that the Emgality works well for 3 weeks, but the effect wears off during the last week of injection cycle. States Nurtec is helpful Patient did not have sleep study, however continues to report daytime sleepiness, increased snoring, a mild weight gain. She has a history of reported mild sleep apnea however was never started on PAP therapy. To would prefer to do a home sleep study instead of an in-lab study. Baseline headache characteristics: Prodrome symptoms: Unsure Aura and Headache: Starts with osmophobia, seeing spots, f/b a bothersome pain in the neck which moves up through the head. Associated symptoms: photophobia, phonophobia, osmophobia, allodynia, nausea, vomiting- at times, spinning dizziness, not right in space dizziness, fatigue, cognitive difficulties, arms feel weak- not sure if from fibromyalgia, red eye, watery eye- at times, nasal congestion, right eye swelling, activity intolerance. Postdrome: can have stabbing pains. 12/01/23, MR/MR head/brain wo con IMPRESSION: 1. Multiple scattered foci of T2/FLAIR hyperintense signal in the supratentorial and predominantly bifrontal white matter are nonspecific but can be seen in the setting of migraine and/or chronic microvascular ischemia. 2. Mildly expanded and partially empty sella. As an isolated finding, this is nonspecific but can be seen in the setting of chronic elevated intracranial pressure including idiopathic intracranial hypertension. Correlate with clinical symptomatology.) [facility] Medical History Anxiety and depression Asthma Surgical History History of left salpingo-oophorectomy H/O section Family History Father Cancer, colon Mother Cirrhosis Diabetes Social History Alcohol intake: never Patient Tobacco Use Status: Never used Tobacco Physical Exam Vital Signs: Last Vital Signs Pulse 88 01/01/25 08:31 BP 90/70 01/01/25 08:31 Pulse Ox 99 01/01/25 08:31 Oxygen Delivery Method Room Air 01/01/25 08:31 BMI result Body Mass Index 30.7 Const General: cooperative and no acute distress Orientation/consciousness: patient oriented x3 Resp Effort & Inspection: normal respiratory effort and able to speak in complete sentences Neuro Other: Occipital alopecia. Mild photophobia General: patient oriented x3 Cranial nerves: Yes CN's II-XII intact bilaterally Cognition (Neuro): normal cognition Psych Appearance: grossly normal Mental Status: mental status grossly normal Speech and movement: Normal speech and movement present Affect: normal affect Attitude: cooperative Assessment & Plan Assessment & Plan (1) Migraine without aura: Code(s): G43.009 - Migraine without aura, not intractable, without status migrainosus Category: Medical Qualifiers: Status migrainosus presence: without status migrainosus Intractability: not intractable Qualified Code(s): G43.009 - Migraine without aura, not intractable, without status migrainosus (2) Obstructive sleep apnea: Code(s): G47.33 - Obstructive sleep apnea (adult) (pediatric) Category: Medical (3) Hypersomnia: Code(s): G47.10 - Hypersomnia, unspecified Category: Medical (4) White matter abnormality on MRI of brain: Code(s): R90.82 - White matter disease, unspecified Category: Medical (5) Empty sella: Code(s): E23.6 - Other disorders of pituitary gland Category: Medical Plan Brain MRI w/wo report and images with patient- stable white matter lesion burden and empty sella turcica. No current clinical indications of IIH. Reviewed ophthalmology notes- no evidence of papilledema. Home sleep study showed AHI 4.5, average SpO2 97%- not c/w sleep apnea. Continue Zepbound tx. Future considerations: LP for opening pressure, trial of Acetazolamide (possibly during air travel). ? For overall headache management: Continue to optimize good self-care, including but not limited to maintaining a healthy diet, adequate fluid intake, adequate sleep, and engaging in regular physical activity. Track headaches, especially after any treatment regimen changes. Information shared with patient on nonpharmacological interventions of migraine, including strategies to reduce photophobia such as blue light blocking glasses, green light therapy. ? For acute headache treatment: Continue Rimegepant ODT (Nurtec ODT) 75mg, 1 tab every other day. Max of 1 tabs (75mg) per 24 hours. Advised to take at the very 1st sign of migraine attack, such as at onset of osmophobia. May adjunct Nurtec with OTC Tylenol 650mg q 4 hours, Ibuprofen 600mg q 6 hours, or Naproxen 440mg q 12 hrs prn. Do not take w/ Butalbital (Fioricet or Fiorinal). Previous acute migraine medication trials: Sumatriptan- did not tolerate- made her head feel weird and caused BP changes. Fioricet stopped, ineffective. Acute migraine medication contraindications: All triptans- d/t poorly controlled HTN. ? For headache prevention medication: Start magnesium 400 mg daily at bedtime- may help was cervical muscle tightness as well Continue Topiramate 50 mg twice a day. Note that 100 mg q.h.s. dose caused nocturnal bilateral facial spasms. Resume Emgality 120mg sc q month, as this has been previously effective. * During last week of Emgality injection cycle, take Nurtec 75 mg every other day to optimize preventative therapy. Taper off Propranolol- 20mg bid x's 2 wks, then 20mg qd x's 2 wks, then 10mg qd x's 2 weeks, then 10mg qod x's 1 wk, then stop. * monitor for palpitations, increased headache, anxiety * advised to let he rpsychiatrist know she is weaning off propranolol Previous migraine prevention medication trials: Topiramate- 100mg- helped some, but stopped after the MRI showed empty sella, Propranolol- was previously used for palpations- did not help headaches. Metoprolol for the palpitations- did not fully help headaches. Migraine prevention medication contraindications: Additional anti-depressant tx- as pt has bipolar dx and is not on an opposing mood stabilizer. Future considerations: With Psychiatry weaning off of bupropion as sometimes this may exacerbate headache, trialing Qulipta. ? Pt to follow-up in 6 months or sooner prn. Medications: New riboflavin (vitamin B2) 400 mg PO DAILY 90 tabs 3RF 90 days propranolol 20mg bid x's 2 wks, then 20mg qd x's 2 wks, then 10mg qd x's 2 weeks, then 10mg qod x's 2 wks, then stop. orally .; 105 tabs 0RF Refilled magnesium oxide may hold for loose stools 400 mg PO BEDTIME 30 tabs 11RF 30 days topiramate 50mg in am and 100mg qhs orally 2 times a day; 90 tabs 6RF 30 days Coding Level of Care Code Est Pt Level 4 (04184) Diagnoses Migraine without aura and without status migrainosus, not intractable G43.009 Status migrainosus presence: without status migrainosus Intractability: not intractable Obstructive sleep apnea G47.33 Hypersomnia G47.10 White matter abnormality on MRI of brain R90.82 Empty sella E23.6
--- OUTSIDE RECORDS SUMMARY | 2025-01-01 09:37 | XMS_ITS | Clinical Summary ---
Author Organization [facility] ity Address [address] [place] [address] Care Team Providers Care Picker Operator Name Role Phone Corrina Burris MD Primary [...] 2) 2022 Colorectal Cancer Screening: Colonoscopy 05/11/2023 HIV Screening 05/11/2023 Hepatitis C Screening 05/11/2023 Social Influencers of Health Screening 05/11/2023 Depression Screening 04/12/2024 COVID-19 Vaccine ( - 2023-2 5 season) 2024 Influenza Vaccine (#1) 2024 HIB Vaccines Aged Out No longer [...] age to complete this topic Care Teams Picker Operator Relationship Specialty Start Date End Date Corrina Burris MD PCP - General Internal Medicine 11/19/16
== END 2025-01-01 09:32 | disposition home or self-care (01) ==
LOC: HO.HSMS 08:26
PROVIDERS: PCP Internal Medicine; Visit Provider Nurse Practitioner Family
DX: G43.009 Migraine without aura, not intractable, without status migrainosus (principal); G47.33 Obstructive sleep apnea (adult) (pediatric); G47.10 Hypersomnia, unspecified; R90.82 White matter disease, unspecified; E23.6 Other disorders of pituitary gland
CPT/HCPCS: 99214

== ENCOUNTER → 2025-01-01 08:26 | Outpatient (BNVA) | payer MEDICARE, MEDICAID, SELFPAY | PROVIDERS: PCP Internal Medicine; Visit Provider Nurse Practitioner Family | DX: E23.6 Other disorders of pituitary gland (principal); R90.82 White matter disease, unspecified; G47.10 Hypersomnia, unspecified; G47.33 Obstructive sleep apnea (adult) (pediatric); G43.009 Migraine without aura, not intractable, without status migrainosus | CPT/HCPCS: 99212 ==